=== PATIENT | male | born 1965 | race Caucasian/White ===

== ENCOUNTER → 2021-09-17 13:56 | Outpatient (BNVA) | payer MEDICAID, SELFPAY | PROVIDERS: Visit Provider Internal Medicine Cardiovascular Disease | DX: J44.9 Chronic obstructive pulmonary disease, unspecified (principal); I10 Essential (primary) hypertension; I45.2 Bifascicular block; G47.33 Obstructive sleep apnea (adult) (pediatric); R06.02 Shortness of breath; Z87.891 Personal history of nicotine dependence | CPT/HCPCS: 71046; 80053; 85025; 99204 ==

== ENCOUNTER 2021-10-07 11:14 | Outpatient (CLI) | payer MEDICAID, SELFPAY ==
[2021-10-07 11:58] LABS: Ferritin 5 ng/mL (30-400); Iron 56 ug/dL (59-158); Percent Saturation 14.5 % (20-50); Total Iron Binding Capacity 384 mcg/dl; Unsaturated Iron Binding 328 ug/dL (112-347)
[2021-10-07 12:13] LABS: Vitamin B12 994 pg/mL (232-1245)
[2021-10-07 14:15] LABS: Folate Level > 20.0 ng/mL (4.5-32.2)
== END 2021-10-07 11:15 | disposition home or self-care (01) ==
PROVIDERS: Internal Medicine Critical Care Medicine; Visit Provider Internal Medicine Cardiovascular Disease
DX: D64.9 Anemia, unspecified (principal)
CPT/HCPCS: 82607; 82728; 82746; 83540; 83550

== ENCOUNTER 2021-10-18 14:04 | Outpatient (CLI) | payer MEDICAID, SELFPAY ==
--- NOTE | 2021-10-18 14:32 | CT_ITS ---
WS: [id number] LDCT LUNG CANCER SCREENING TECHNIQUE: Noncontrast CT of the chest with coronal and sagittal reformatted images. CLINICAL INFORMATION: Lung cancer screen COMPARISON: None. DLP: 93.27 mGy.cm DIvol: Mean CTDIvol: 1.60 (mGy) All CT scans at [facility] use at least one of these dose optimization techniques: automat ed exposure control; mA and/or kV adjustment per patient size (includes targeted exams where dose is matched to clinical indication); or iterative reconstruction. FINDINGS: Moderate chronic emphysematous changes. No acute pulmonary infiltrates. Normal caliber thoracic aorta . No mediastinal or hilar lymphadenopathy. No axillary lymphadenopathy. Adrenal glands are normal. Small esophageal hiatal hernia. Low-attenuation LEFT hepatic lesion likely hepatic cyst measuring 14 mm. Hypertrophic changes thoracic spine. 6 mm hazy nodule RIGHT upper lobe . Subsegmental atelectasis RIGHT lower lobe. CT/CT lung screening [id number] IMPRESSION: LUNG-RADS: 2-Benign Appearance or Behavior FOLLOW UP: 12 Month: Continue annual screening with LDCT
== END 2021-10-18 14:05 | disposition home or self-care (01) ==
LOC: RAD 14:05
PROVIDERS: PCP Nurse Practitioner Family; Visit Provider Internal Medicine Critical Care Medicine
DX: Z12.2 Encounter for screening for malignant neoplasm of respiratory organs (principal); F17.200 Nicotine dependence, unspecified, uncomplicated
CPT/HCPCS: 71271

== ENCOUNTER 2021-11-12 13:22 | Outpatient (CLI) | payer MEDICAID, SELFPAY ==
--- NOTE | 2021-11-12 14:02 | PFTS_ITS ---
Date of Study:11/12/21 Date of Dictation: 11/15/2021 MECHANICS: Postbronchodilator forced vital capacity (FVC) is normal. Postbronchodilator forced expiratory volume in one second (FEV1) is moderately reduced. FEV1/FVC is reduced. There is significant postbronchodilator response FLOW VOLUME LOOP: Sloping of expiratory limb suggestive of airway obstruction . LUNG VOLUMES: Not measured. DIFFUSING CAPACITY FOR CARBON MONOXIDE: Moderately reduced . INTERPRETATION: The spirometry consistent with moderate obstruction.? There is significant response to bronchodilators.? Lung volumes not measured. There is moderate gas transfer defect.? Constellation of findings consistent with moderate emphysema.? Correlate clinically. MTDD
== END 2021-11-12 13:23 | disposition home or self-care (01) ==
LOC: RT 13:26
PROVIDERS: PCP Nurse Practitioner Family; Visit Provider Internal Medicine Critical Care Medicine
DX: J44.9 Chronic obstructive pulmonary disease, unspecified (principal)
CPT/HCPCS: 94060; 94729; J7611

== ENCOUNTER 2021-12-18 14:21 | Outpatient (CLI) | payer MEDICAID, SELFPAY ==
[2021-12-18 17:33] LABS: Iron 144 ug/dL (59-158)
== END 2021-12-18 14:22 | disposition home or self-care (01) ==
LOC: LAB 14:23
PROVIDERS: PCP Nurse Practitioner Family; Visit Provider Internal Medicine Critical Care Medicine
DX: D64.9 Anemia, unspecified (principal); I10 Essential (primary) hypertension; I45.2 Bifascicular block; J44.9 Chronic obstructive pulmonary disease, unspecified; G47.33 Obstructive sleep apnea (adult) (pediatric); Z87.891 Personal history of nicotine dependence
CPT/HCPCS: 83540; 99214

== ENCOUNTER → 2021-12-19 13:00 | Outpatient (BNVA) | payer MEDICAID, SELFPAY | PROVIDERS: PCP Nurse Practitioner Family; Visit Provider Internal Medicine Critical Care Medicine | DX: G47.33 Obstructive sleep apnea (adult) (pediatric) (principal); J44.9 Chronic obstructive pulmonary disease, unspecified; Z87.891 Personal history of nicotine dependence; G47.10 Hypersomnia, unspecified; I10 Essential (primary) hypertension; K21.9 Gastro-esophageal reflux disease without esophagitis | CPT/HCPCS: 99214 ==

== ENCOUNTER 2022-05-14 05:55 | Day surgery (SDC) | payer MEDICAID, SELFPAY ==
[2022-05-13 08:09] VITALS: BMI 33.7
--- NOTE | 2022-05-14 06:25 | W.PM.OPSUD ---
Surgery/Procedure H&P Update DATE OF PROCEDURE: May 14, 2022 DATE H&P PERFORMED: 05/12/22 PLANNED PROCEDURE: Operation Date: 05/14/22 07:30 Proposed Procedures p Colonoscopy 94929,R93.89,Z86.010(Not Applicable) - Adán Johnston DO
[2022-05-14 06:26] VITALS: BP 113/79; PULSE 95; RESP 18; TEMP 36.1; O2SAT 96
[2022-05-14] MEDS: sodium chloride 0.9% 1,000 ML 30 ML IV (06:32)
--- NOTE | 2022-05-14 07:00 | ANES.PREANE2 ---
Pre-Anesthetic Assessment Height/Weight: Height 1.91 m Weight 122.47 kg Temp Pulse Resp BP Pulse Ox O2 Del Method 97 F L 95 18 113/79 96 05/14/22 06:26 05/14/22 06:26 05/14/22 06:26 05/14/22 06:26 05/14/22 06:26 05/14/22 06:26 Operation Date: 05/14/22 07:30 Proposed Procedures p Colonoscopy 75826,R93.89,Z86.010(Not Applicable) - Adán Johnston, DO Was Beta Anayeli taken within 24 hours: N/A Was Clonidine taken within 24 hours: N/A Last intake: Intake Last Liquid Date 05/14/22 Last Liquid Time 05:00 Last Solid Date 05/12/22 Last Solid Time 15:00 Social Quit smoking 1 year ago Exam alert, oriented x 3, clear to auscultation bilaterally and regular rate & rhythm Airway Submandibular: within normal limits Cervical ROM: within normal limits Mallampati: Class II Dentition: false History/ROS No significant history except as noted and No significant complaints Pulmonary Asthma, Chronic Obstructive Pulmonary Disease and Shortness of Breath CV/HEM Hypertension None reported Hepatic None reported GI Gastroesophageal Reflux Disease Metabolic Morbid Obesity Neuropsych Depression Anesthetic Plan ASA status: 3 Anesthesia: Anesthesia Evaluation and MAC Risk of > 500 ml blood loss (7ml/kg in children): No Medications/Allergies Home Medications Medication Instructions Recorded Confirmed Last Taken Type albuterol sulfate 2.5 mg/3 mL 2.5 mg inhalation Q4H PRN 09/17/21 05/13/22 05/12/22 History (0.083 %) solution for nebulization Shortness Of Breath amlodipine 5 mg tablet 5 mg PO DAILY 09/17/21 05/13/22 05/12/22 History hydroxyzine HCl 25 mg tablet 25 mg PO TID PRN Insomnia 09/17/21 05/13/22 05/12/22 History lansoprazole 15 mg capsule,delayed 15 mg PO DAILY 09/17/21 05/13/22 05/12/22 History release montelukast 10 mg tablet 10 mg PO DAILY 09/17/21 05/13/22 05/12/22 History multivitamin 1 tab PO DAILY 09/17/21 05/13/22 05/12/22 History vitamin B complex (B 1 tab PO DAILY 09/17/21 05/13/22 05/12/22 History Complex-Vitamin B12 tablet) zinc 50 mg tablet 50 mg PO DAILY 09/17/21 05/13/22 05/12/22 History tadalafil 20 mg tablet 20 mg PO DAILY PRN sexual activity 10/29/21 05/13/22 05/12/22 Rx #20 tabs pentoxifylline 400 mg 400 mg PO TID PRN unknown 12/18/21 05/13/22 05/12/22 History tablet,extended release trazodone 50 mg tablet 50 mg PO DAILY PRN sleep 12/18/21 05/13/22 05/12/22 History budesonide 0.5 mg/2 mL suspension 0.5 mg (2 mL) inhalation BID 30 12/19/21 05/13/22 05/12/22 Rx for nebulization (Pulmicort) days #120 mL revefenacin 175 mcg/3 mL solution 175 mcg (3 mL) inhalation DAILY 30 12/19/21 05/13/22 05/12/22 Rx for nebulization days #90 mL albuterol sulfate 90 mcg/actuation 2 puff inhalation Q6H PRN 03/21/22 05/13/22 05/12/22 Rx aerosol inhaler (ProAir HFA) shortness of breath or wheezing #8.5 grams prednisone 10 mg tablet 10 mg PO .COMPLEX 12 days #24 tabs 03/21/22 05/13/22 05/12/22 Rx salmeterol 50 mcg/dose blister 1 inh inhalation Q12H 30 days #60 03/21/22 05/13/22 05/12/22 Rx powder for inhalation (Serevent ea Diskus) naproxen 500 mg tablet 500 mg PO BID #60 tabs 05/12/22 05/13/22 05/12/22 Rx Allergies Allergy/AdvReac Type Severity Reaction Status Date / Time amoxicillin AdvReac Mild ADR-Diarrhe Verified 05/13/22 08:08 a Current Medications Generic Name Dose Route Start Last Admin Trade Name Freq PRN Reason Stop Dose Admin Sodium Chloride 1,000 mls @ 30 mls/hr 05/14/22 06:00 05/14/22 06:32 Sodium Chloride 0.9% IV 05/15/22 05:59 30 mls/hr .Q24H MARIO Administration PFSH Anesthesia Medical History (Updated 05/12/22 @ 13:34 by Adán Johnston DO) Bifascicular block Chronic obstructive pulmonary disease Chronic sciatica Diverticulitis Erectile dysfunction GERD (gastroesophageal reflux disease) History of colon polyps HTN (hypertension) Insomnia JOSE (obstructive sleep apnea) Peyronie's disease Recurrent major depressive disorder Surgical History History of arthroscopic knee surgery Hx of colonoscopy with polypectomy S/P appendectomy S/P coronary angiogram S/P shoulder surgery S/P trigger finger release S/P wrist surgery Family History Mother Hx of CABG Father No problems noted. Social History Smoking and tobacco status: former smoker Quit status (tobacco): has quit using tobacco Former quit date comment: Smoked on and off for 35 years. No set amount. Alcohol intake: never Marital status: Current occupational status: unemployed History of recent travel: No Data Anesthesia Cardiac Studies: No Data to Display
[2022-05-14 08:44] VITALS: BP 104/88; PULSE 71; RESP 20; TEMP 36.8; O2SAT 95
[2022-05-14 08:54] VITALS: BP 124/106; PULSE 73; RESP 18; O2SAT 99
[2022-05-14] MEDS: ondansetron 2 mg/ML SDV 2 mL 4 MG IVP (09:06)
--- NOTE | 2022-05-14 12:45 | ANE.PACU2 ---
Inpatient post-anesthesia follow up: Airway intact: Yes Vital signs: Temperature 98.3 F Pulse Rate 73 Respiratory Rate 18 Blood Pressure 124/106 Pulse Oximetry 99 Oxygen Delivery Me thod Nasal Cannula Oxygen Flow Rate 3.5 Fraction of Inspir ed Oxygen Hydration adequate: Yes Nausea and vomiting: No Pain level: 1 Mental status: Baseline
== END 2022-05-14 09:45 | disposition home or self-care (01) ==
PROVIDERS: PCP Nurse Practitioner Family; Visit Provider Surgery
PROC: 0DJD8ZZ Inspection of Lower Intestinal Tract, Via Natural or Artificial Opening Endoscopic (ICD-10-PCS; CPT 45378; principal; 2022-05-14 07:30)
DX: R93.89 Abnormal findings on diagnostic imaging of other specified body structures (principal); Z86.010 Personal history of colon polyps; D12.4 Benign neoplasm of descending colon; D12.5 Benign neoplasm of sigmoid colon; D12.3 Benign neoplasm of transverse colon; K57.30 Diverticulosis of large intestine without perforation or abscess without bleeding; Z87.891 Personal history of nicotine dependence; J44.9 Chronic obstructive pulmonary disease, unspecified; I10 Essential (primary) hypertension; K21.9 Gastro-esophageal reflux disease without esophagitis; E66.01 Morbid (severe) obesity due to excess calories; Z68.33 Body mass index [BMI] 33.0-33.9, adult; F32.A Depression, unspecified; G47.33 Obstructive sleep apnea (adult) (pediatric)
CPT/HCPCS: 45380; 45381; 45385; 88305; J2405; J2704; J7030

== ENCOUNTER 2022-07-02 06:44 | Day surgery (SDC) | payer MEDICAID, SELFPAY ==
[2022-06-30 14:44] VITALS: BMI 34.7
[2022-07-02 06:59] VITALS: BP 111/94; PULSE 117; RESP 18; TEMP 36.2; O2SAT 97
[2022-07-02] MEDS: sodium chloride 0.9% 1,000 ML 30 ML IV (07:08)
--- NOTE | 2022-07-02 08:08 | ANES.PREANE2 ---
Pre-Anesthetic Assessment Height/Weight: Height 1.88 m Weight 122.47 kg Temp Pulse Resp BP Pulse Ox O2 Del Method 97.2 F L 117 H 18 111/94 97 07/02/22 06:59 07/02/22 06:59 07/02/22 06:59 07/02/22 06:59 07/02/22 06:59 07/02/22 06:59 Preop Diagnosis: abnormal finding on imaging Operation Date: 07/02/22 08:30 Proposed Procedures p Colonoscopy 49059,Z86.010(Not Applicable) - Adán Johnston DO Familial anesthetic complications: none Was Beta Anayeli taken within 24 hours: N/A Was Clonidine taken within 24 hours: N/A Last intake: Intake Last Liquid Date 07/01/22 Last Liquid Time 02:20 Last Solid Date 06/30/22 Last Solid Time 18:00 Social No alcohol and No tobacco Airway Submandibular: within normal limits Cervical ROM: within normal limits Mallampati: Class II Dentition: false Pulmonary Asthma, Chronic Obstructive Pulmonary Disease and Sleep Apnea (CPAP) CV/HEM Arrythmia (mention of bradycardia denies symtoms) and Hypertension None reported Hepatic None reported GI Gastroesophageal Reflux Disease Metabolic Morbid Obesity [facility] None reported Neuropsych Depression Anesthetic Plan ASA status: 3 Anesthesia: MAC Medications/Allergies Home Medications Medication Instructions Recorded Confirmed Last Taken Type albuterol sulfate 2.5 mg/3 mL 2.5 mg inhalation Q4H PRN 09/17/21 07/02/22 06/25/22 History (0.083 %) solution for nebulization Shortness Of Breath amlodipine 5 mg tablet 5 mg PO DAILY 09/17/21 07/02/22 07/02/22 History hydroxyzine HCl 25 mg tablet 25 mg PO TID PRN Insomnia 09/17/21 07/02/22 06/30/22 History lansoprazole 15 mg capsule,delayed 15 mg PO DAILY 09/17/21 07/02/22 06/30/22 History release montelukast 10 mg tablet 10 mg PO DAILY 09/17/21 07/02/22 06/30/22 History multivitamin 1 tab PO DAILY 09/17/21 07/02/22 06/30/22 History zinc 50 mg tablet 50 mg PO DAILY 09/17/21 07/02/22 06/30/22 History tadalafil 20 mg tablet 20 mg PO DAILY PRN sexual activity 10/29/21 07/02/22 06/25/22 Rx #20 tabs pentoxifylline 400 mg 400 mg PO TID PRN unknown 12/18/21 07/02/22 06/30/22 History tablet,extended release trazodone 50 mg tablet 50 mg PO DAILY PRN sleep 12/18/21 07/02/22 06/25/22 History budesonide 0.5 mg/2 mL suspension 0.5 mg (2 mL) inhalation BID 30 12/19/21 07/02/22 06/25/22 Rx for nebulization (Pulmicort) days #120 mL revefenacin 175 mcg/3 mL solution 175 mcg (3 mL) inhalation DAILY 30 12/19/21 07/02/22 06/25/22 Rx for nebulization days #90 mL albuterol sulfate 90 mcg/actuation 2 puff inhalation Q6H PRN 03/21/22 07/02/22 07/02/22 Rx aerosol inhaler (ProAir HFA) shortness of breath or wheezing #8.5 grams salmeterol 50 mcg/dose blister 1 inh inhalation Q12H 30 days #60 03/21/22 07/02/22 06/25/22 Rx powder for inhalation (Serevent ea Diskus) naproxen 500 mg tablet 500 mg PO BID #60 tabs 05/12/22 07/02/22 06/30/22 Rx Allergies Allergy/AdvReac Type Severity Reaction Status Date / Time amoxicillin AdvReac Mild ADR-Diarrhe Verified 07/02/22 06:57 a Current Medications Generic Name Dose Route Start Last Admin Trade Name Freq PRN Reason Stop Dose Admin Sodium Chloride 1,000 mls @ 30 mls/hr 07/02/22 07:00 07/02/22 07:08 Sodium Chloride 0.9% IV 07/03/22 06:59 30 mls/hr .Q24H MARIO Administration PFSH Anesthesia Medical History (Updated 06/03/22 @ 17:17 by Adán Johnston DO) Bifascicular block Chronic obstructive pulmonary disease Chronic sciatica Diverticulitis Erectile dysfunction GERD (gastroesophageal reflux disease) History of colon polyps HTN (hypertension) Insomnia JOSE (obstructive sleep apnea) Peyronie's disease Recurrent major depressive disorder Tubulovillous adenoma Surgical History History of arthroscopic knee surgery Hx of colonoscopy with polypectomy S/P appendectomy S/P coronary angiogram S/P shoulder surgery S/P trigger finger release S/P wrist surgery Family History Mother Hx of CABG Father No problems noted. Social History Smoking and tobacco status: former smoker Quit status (tobacco): has quit using tobacco Former quit date comment: Smoked on and off for 35 years. No set amount. Alcohol intake: never Marital status: Current occupational status: unemployed History of recent travel: No Data Anesthesia Cardiac Studies: No Data to Display
--- NOTE | 2022-07-02 08:32 | W.PM.OPSUD ---
Surgery/Procedure H&P Update DATE OF PROCEDURE: July 02, 2022 DATE H&P PERFORMED: 06/03/22 PREOP DIAGNOSIS: abnormal finding on imaging PLANNED PROCEDURE: Operation Date: 07/02/22 08:30 Proposed Procedures p Colonoscopy 49031,Z86.010(Not Applicable) - Adán Johnston DO
[2022-07-02 08:57] VITALS: BP 102/68; PULSE 87; RESP 16; TEMP 36.1; O2SAT 93
[2022-07-02 09:06] VITALS: BP 94/73; PULSE 85; RESP 18; O2SAT 94
--- NOTE | 2022-07-02 15:18 | ANE.PACU2 ---
Inpatient post-anesthesia follow up: Airway intact: Yes Vital signs: Temperature 97 F Pulse Rate 85 Respiratory Rate 18 Blood Pressure 94/73 Pulse Oximetry 94 Oxygen Delivery Me thod Room Air Oxygen Flow Rate Fraction of Inspir ed Oxygen Hydration adequate: Yes Nausea and vomiting: No Pain level: 2 Mental status: Baseline
== END 2022-07-02 09:25 | disposition home or self-care (01) ==
PROVIDERS: PCP Nurse Practitioner Family; Visit Provider Surgery
PROC: 0DJD8ZZ Inspection of Lower Intestinal Tract, Via Natural or Artificial Opening Endoscopic (ICD-10-PCS; CPT 45378; principal; 2022-07-02 08:30)
DX: Z86.010 Personal history of colon polyps (principal); K57.30 Diverticulosis of large intestine without perforation or abscess without bleeding; D17.79 Benign lipomatous neoplasm of other sites; K63.5 Polyp of colon; J44.9 Chronic obstructive pulmonary disease, unspecified; G47.30 Sleep apnea, unspecified; I10 Essential (primary) hypertension; K21.9 Gastro-esophageal reflux disease without esophagitis; E66.01 Morbid (severe) obesity due to excess calories; Z68.34 Body mass index [BMI] 34.0-34.9, adult; G47.33 Obstructive sleep apnea (adult) (pediatric); Z87.891 Personal history of nicotine dependence
CPT/HCPCS: 45385; J2704; J7030

== ENCOUNTER → 2022-10-10 09:22 | Outpatient (BNVA) | payer MEDICAID, SELFPAY | PROVIDERS: PCP Nurse Practitioner Family; Visit Provider Internal Medicine Pulmonary Disease | DX: J22 Unspecified acute lower respiratory infection (principal); R06.02 Shortness of breath; G47.33 Obstructive sleep apnea (adult) (pediatric); F17.200 Nicotine dependence, unspecified, uncomplicated; J44.9 Chronic obstructive pulmonary disease, unspecified | CPT/HCPCS: 71046 ==

== ENCOUNTER → 2022-12-23 15:47 | Outpatient (BNVA) | payer MEDICAID, SELFPAY | PROVIDERS: PCP Nurse Practitioner Family; Visit Provider Internal Medicine Cardiovascular Disease | DX: R06.02 Shortness of breath (principal); I45.10 Unspecified right bundle-branch block; J44.9 Chronic obstructive pulmonary disease, unspecified; F17.200 Nicotine dependence, unspecified, uncomplicated; G47.33 Obstructive sleep apnea (adult) (pediatric); I10 Essential (primary) hypertension; I45.2 Bifascicular block | CPT/HCPCS: 93005 ==

== ENCOUNTER 2024-05-23 19:54 | Emergency (ER) | payer MEDICARE, SELFPAY ==
[2024-05-23 20:05] VITALS: BP 100/64; PULSE 117; RESP 20; O2SAT 95; BMI 34.3
--- NOTE | 2024-05-23 20:22 | XRR_ITS ---
PROCEDURE INFORMATION: Exam: XR Chest Exam date and time: 05/23/2024 8:30 PM Age: 59 years old Clinical indication: Shortness of breath; Additional info: SOB TECHNIQUE: Imaging protocol: Radiologic exam of the chest. Views: 1 view. COMPARISON: CR XR chest 2V* [id number] 10/10/2022 9:29 AM FINDINGS: Lungs: Unremarkable. No consolidation. Pleural spaces: Unremarkable. No pleural effusion. No pneumothorax. Heart/Mediastinum: Unremarkable. No cardiomegaly. Bones/joints: Old healed right clavicle fracture. XR/XR chest 1V portable [id number] IMPRESSION: No acute findings.
--- NOTE | 2024-05-23 20:22 | ECG_ITS ---
[facility] Pat Name: Axel Giron Department: Room: Gender: Male [employer]fit[employer] Supervisor: : 1965 Requested By: Favio Appiah Order Number: [id number] Beatriz MD: Callum Power M.D. Measurements Intervals [place] Rate: 100 P: 58 IN: 130 QRS: 266 QRSD: 137 T: 64 QT: 347 QTc: 449 Interpretive Statements SINUS TACHYCARDIA RIGHT AXIS DEVIATION [QRS AXIS > 100] RIGHT BUNDLE BRANCH BLOCK [120+ ms QRS DURATION, UPRIGHT V1, 40+ ms S IN I/aVL/V4/V5/V6] Compared to ECG 12/23/2022 16:04:26 Right-axis deviation now present Sinus rhythm no longer present Ventricular premature complex(es) no longer present Left anterior fascicular block no longer present Electronically Signed On 05-28-2024 15:57:34 TALENT ACQUISITION ADMINISTRATOR by Callum Power M.D. [email or web address]
--- NOTE | 2024-05-23 20:27 | ED_ITS ---
HPI - URI/Sore Throat 2 General: Chief Complaint: Upper Respiratory Infection Stated Complaint: sore throat headache SOB Time Seen by Provider: 05/23/24 20:22 Source: patient Mode of arrival: ambulatory Limitations: no limitations History of Present Illness: 59-year-old male with a history of COPD states over the last 2 days he has been having sore throat cough congestion low-grade fever along with a mild headache. States he has had some sick contacts at home. Said some dyspnea as well he denies any vomiting or diarrhea he denies any chest pain. He is able speak in full senses here. Associated symptoms: Reports fever(s) and headache(s); Deny abdominal pain, chills, chest pain, diarrhea, nausea or vomiting Related Data Home Medications Medication Instructions Recorded Confirmed amlodipine 5 mg tablet 5 mg PO DAILY 09/17/21 12/18/23 hydroxyzine HCl 25 mg tablet 25 mg PO TID PRN Insomnia 09/17/21 12/18/23 lansoprazole 15 mg capsule,delayed 15 mg PO DAILY 09/17/21 12/18/23 release montelukast 10 mg tablet 10 mg PO DAILY 09/17/21 12/18/23 multivitamin 1 tab PO DAILY 09/17/21 12/18/23 zinc 50 mg tablet 50 mg PO DAILY 09/17/21 12/18/23 trazodone 50 mg tablet 50 mg PO DAILY PRN sleep 12/18/21 12/18/23 Previous Rx's Medication Instructions Recorded tadalafil 20 mg tablet 20 mg PO DAILY PRN sexual activity 10/29/21 #20 tabs albuterol sulfate 2.5 mg/3 mL 2.5 mg (3 mL) inhalation Q4H PRN 10/13/22 (0.083 %) solution for nebulization Shortness Of Breath #180 mL pentoxifylline 400 mg See Rx Instructions .Route 10/17/22 tablet,extended release .COMPLEX #270 tabs albuterol sulfate 90 mcg/actuation 2 puff inhalation Q6H PRN 11/20/23 aerosol inhaler (ProAir HFA) shortness of breath or wheezing #8.5 grams azithromycin 250 mg tablet 250 mg PO .every other day #36 tabs 11/20/23 ipratropium 0.5 mg-albuterol 3 mg 3 ml inhalation QID PRN wheezing 11/20/23 (2.5 mg base)/3 mL nebulization #180 mL soln budesonide 0.5 mg/2 mL suspension 0.5 mg (2 mL) inhalation BID #360 12/18/23 for nebulization (Pulmicort) mL tiotropium bromide 1.25 2 puff inhalation DAILY #12 grams 12/18/23 mcg/actuation mist for inhalation (Spiriva Respimat) formoterol fumarate 20 mcg/2 mL 2 ml inhalation BID #1,080 mL 01/06/24 solution for nebulization (Perforomist) Allergies Allergy/AdvReac Type Severity Reaction Status Date / Time amoxicillin AdvReac Mild ADR-Diarrhe Verified 04/21/23 09:12 a Review of Systems 2 Const: Reports: fever(s) and body aches; Denies: chills or change in appetite ENMT: Reports: throat pain; Denies: dental pain Card: Denies: chest pain Resp: Reports: dyspnea and non-productive cough GI: Denies: abdominal pain, nausea, vomiting or diarrhea : Denies: dysuria Musc: Denies: neck pain or back pain Skin/Breast: Denies: rash Neuro: Reports: headache(s) PFSH ED 2 PFSH: Medical History Tubulovillous adenoma History of colon polyps Erectile dysfunction Bifascicular block Insomnia Peyronie's disease Diverticulitis Chronic obstructive pulmonary disease Chronic sciatica Recurrent major depressive disorder JOSE (obstructive sleep apnea) HTN (hypertension) GERD (gastroesophageal reflux disease) Surgical History History of arthroscopic knee surgery Hx of colonoscopy with polypectomy S/P trigger finger release S/P wrist surgery S/P appendectomy S/P shoulder surgery S/P coronary angiogram Family History Mother Hx of CABG Father No problems noted. Social History Smoking and tobacco/nicotine status: former use of tobacco/nicotine Quit status (tobacco/nicotine): has quit using Year quit tobacco: 09/22/2020 Former quit date comment: Smoked on and off for 35 years. No set amount. Alcohol intake: never Marital status: Current occupational status: unemployed Physical Exam 2 Const: COMMON NORMALS: patient oriented x3 HENMT: COMMON NORMALS: normocephalic and atraumatic HEAD & SCALP: n ormocephalic and atraumatic Eye: COMMON NORMALS: Equal, round and reactive pupils present and EOMs intact bilaterally PUPIL: Yes Equal, round and reactive pupils present Neck/C-Spine: COMMON NORMALS: full ROM and supple Chest: COMMONS NORMALS: normal inspection of the chest and normal palpation of entire chest wall Resp: COMMON NORMALS: normal respiratory effort, No retractions, No use of accessory muscles and clear to auscultation bilaterally AUSCULTATION: clear to auscultation bilaterally Cardio: COMMON NORMALS: regular rate, regular rhythm and No murmurs present (Cardio) RATE: regular rate RHYTHM: regular rhythm GI: COMMON NORMALS: Normal to inspection, nondistended, normoactive bowel sounds present, Soft to palpation, non-tender and no masses PALPATION: Yes Soft to palpation Extremity: COMMON NORMALS: normal to inspection and full ROM Neuro: COMMON NORMALS: patient oriented x3, moves all extremities and no focal motor deficits Psych: COMMON NORMALS: mental status grossly normal, Normal thought process present and cooperative THOUGHT PROCESS: Normal thought process present Skin: COMMON NORMALS: no rashes or lesions noted and no wounds GENERAL SKIN EXAM: no rashes or lesions noted Course 2 Vital Signs: Vital signs: Vital Signs Pulse Rate 92 05/23/24 22:06 Respiratory Rate 16 05/23/24 22:06 Blood Pressure 140/83 05/23/24 22:06 Pulse Oximetry 95 05/23/24 22:06 Oxygen Delivery Me thod Room Air 05/23/24 20:59 MDM - URI/Sore Throat Medical Decision Making Patient presents here with likely upper respiratory infection has had cough low- grade fevers body aches he felt much improved here after fluids and steroids no signs of pneumonia COVID is negative he is stable for discharge he is follow-up with PCP and return if worsening he understands agrees to plan. Medical Records I reviewed the patient's medical records. Lab Data I reviewed the patient's lab results. 05/23/24 20:44 05/23/24 20:44 Radiology Impressions Chest X-Ray 05/23/24 20:22 IMPRESSION: No acute findings. Laboratory Results WBC 11.60 10^3/uL (3.29-11.43) H 05/23/24 20:44 RBC 5.21 10^6/uL (3.85-5.65) 05/23/24 20:44 Hgb 13.90 g/dL (11.27-16.99) 05/23/24 20:44 Hct 43.4 % (37-53) 05/23/24 20:44 MCV 83.3 fl (82-101) 05/23/24 20:44 MCH 26.7 pg (27-33) L 05/23/24 20:44 MCHC 32.0 g/dL (30-55) 05/23/24 20:44 RDW 14.2 % (12.1-15.1) 05/23/24 20:44 Plt Count 230 10^3/cmm (157-399) 05/23/24 20:44 MPV 10.0 fL (7.4-10.4) 05/23/24 20:44 Neut % (Auto) 72.6 % 05/23/24 20:44 Lymph % (Auto) 18.3 % 05/23/24 20:44 Rush % (Auto) 5.4 % 05/23/24 20:44 Eos % (Auto) 2.9 % 05/23/24 20:44 Baso % (Auto) 0.6 % 05/23/24 20:44 Neut # (Auto) 8.42 10^3/uL (1.8-7.7) H 05/23/24 20:44 Lymph # (Auto) 2.1 10^3/uL (0.8-4.8) 05/23/24 20:44 Rush # (Auto) 0.6 10^3/uL (0.2-0.9) 05/23/24 20:44 Eos # (Auto) 0.3 10^3/uL (0.0-0.8) 05/23/24 20:44 Baso # (Auto) 0.1 10^3/uL (0.0-0.1) 05/23/24 20:44 Nucleated RBC % (auto) 0 % 05/23/24 20:44 Nucleated RBCs # 0.0 /100WBC 05/23/24 20:44 Sodium 139 mmol/L (136-145) 05/23/24 20:44 Potassium 3.7 mmol/L (3.5-5.1) 05/23/24 20:44 Chloride 103 mmol/L (98-107) 05/23/24 20:44 Carbon Dioxide 24 mmol/L (22-29) 05/23/24 20:44 Anion Gap 15.7 (5-19) 05/23/24 20:44 BUN 8 mg/dL (8-23) 05/23/24 20:44 Creatinine 1.1 mg/dL (0.7-1.2) 05/23/24 20:44 GFR Calculation 68.3 mL/min (90-130) L 05/23/24 20:44 Glucose 173 mg/dL (65-115) H 05/23/24 20:44 Calculated Osmolality 290 mOsm/kg (285-295) 05/23/24 20:44 Calcium 8.4 mg/dL (8.5-10.5) L 05/23/24 20:44 Total Bilirubin 0.2 mg/dL (0.15-1.2) 05/23/24 20:44 AST 21 U/L (0-40) 05/23/24 20:44 ALT 15 U/L (0-41) 05/23/24 20:44 Alkaline Phosphatase 67 U/L (40-130) 05/23/24 20:44 NT-Pro-B Natriuret Pep < 36 pg/mL (0-125) 05/23/24 20:44 Total Protein 7.4 g/dL (6.6-8.7) 05/23/24 20:44 Albumin 4.1 g/dL (3.5-5.2) 05/23/24 20:44 Globulin 3.3 g/dL (1.3-4.6) 05/23/24 20:44 Coronavirus (PCR) Negative (Negative) 05/23/24 20:49 Influenza A (PCR) Negative (Negative) 05/23/24 20:49 Influenza Type B (PCR) Negative (Negative) 05/23/24 20:49 RSV (PCR) Negative (Negative) 05/23/24 20:49 All radiology interpretation(s) finalized by discharge EKG Data EKG 1: I personally reviewed and interpreted this EKG as follows: EKG interpretation date: 05/23/24 EKG interpretation time: 20:27 Interpretation: sinus tach hr [address] elevation qrs 137 qtc 404 Discharge Plan Discharge Patient Disposition: Home Clinical Impression: Upper respiratory infection Condition: Stable Prescriptions: No Action hydroxyzine HCl 25 mg tablet 25 mg PO TID PRN (Reason: Insomnia) zinc 50 mg tablet 50 mg PO DAILY multivitamin Tablet 1 tab PO DAILY lansoprazole 15 mg capsule,delayed release(DR/EC) 15 mg PO DAILY amlodipine 5 mg tablet 5 mg PO DAILY montelukast 10 mg tablet 10 mg PO DAILY trazodone 50 mg tablet 50 mg PO DAILY PRN (Reason: sleep) tadalafil 20 mg tablet 20 mg PO DAILY PRN (Reason: sexual activity) Qty: 20 12RF Rx Instructions: administer approximately 30min before sexual activity; NO NITROGLYCERIN! Spiriva Respimat 1.25 mcg/actuation mist 2 puff inhalation DAILY Qty: 12 4RF budesonide [Pulmicort] 0.5 mg/2 mL suspension for nebulization 0.5 mg inhalation BID Qty: 360 3RF albuterol sulfate 2.5 mg /3 mL (0.083 %) solution for nebulization 2.5 mg inhalation Q4H PRN (Reason: Shortness Of Breath) Qty: 180 3RF pentoxifylline 400 mg tablet extended release See Rx Instructions .ROUTE .COMPLEX Qty: 270 3RF Dose Instruction: TAKE 1 TABLET BY MOUTH THREE TIMES DAILY. ADMINISTER WITH MEALS. Rx Instructions: TAKE 1 TABLET BY MOUTH THREE TIMES DAILY. ADMINISTER WITH MEALS. albuterol sulfate [ProAir HFA] 90 mcg/actuation HFA aerosol inhaler 2 puff inhalation Q6H PRN (Reason: shortness of breath or wheezing) Qty: 8.5 6RF ipratropium-albuterol 0.5 mg-3 mg(2.5 mg base)/3 mL solution for nebulization 3 ml inhalation QID PRN (Reason: wheezing) Qty: 180 6RF azithromycin 250 mg tablet 250 mg PO .every other day Qty: 36 3RF Rx Instructions: 1 tab on Thursday,,Thursday formoterol fumarate [Perforomist] 20 mcg/2 mL solution for nebulization 2 ml inhalation BID Qty: 1080 3RF Discharge Orders: Discharge ED (Routine); Ordered 05/23/24 Ordered By: Favio Appiah Referrals: Yennifer Cobos FNP [Primary Care Provider] - 4-7 days Discharge Diet: Advance as tolerated Discharge Activity: Resume usual activity Patient Instructions: Upper Respiratory Infection (ED) Coding Level of Care Code ED [employer] Officer for Himanshu Natarajan
[2024-05-23 20:54] LABS: Basophils # 0.1 10^3/uL (0.0-0.1); Basophils % 0.6 %; Eosinophils # 0.3 10^3/uL (0.0-0.8); Eosinophils % 2.9 %; Hematocrit 43.4 % (37-53); Lymphocytes # 2.1 10^3/uL (0.8-4.8); Lymphocytes % 18.3 %; Mean Corpuscular Hemoglobin 26.7 pg (27-33); Mean Corpuscular Volume 83.3 fl (82-101); Monocytes # 0.6 10^3/uL (0.2-0.9); Monocytes % 5.4 %; Neutrophils # 8.42 10^3/uL (1.8-7.7); Neutrophils % 72.6 %; Nucleated Red Blood Cells % 0 %; Platelet Count 230 10^3/cmm (157-399); Red Blood Count 5.21 10^6/uL (3.85-5.65); Red Cell Distribution Width 14.2 % (12.1-15.1)
[2024-05-23] MEDS: sodium chloride 0.9% 500 ML 999 ML IV (20:54)
[2024-05-23] MEDS: ketorolac 30 mg/mL INJ 15 MG IVP (20:55)
[2024-05-23] MEDS: dexamethasone 10 mg/mL INJ IVP (20:55)
[2024-05-23 20:59] VITALS: BP 127/99; PULSE 108; RESP 12; O2SAT 94
[2024-05-23 21:28] LABS: Alanine Aminotransferase 15 U/L (0-41); Albumin Level 4.1 g/dL (3.5-5.2); Anion Gap 15.7 (5-19); Aspartate Amino Transferase 21 U/L (0-40); Blood Urea Nitrogen 8 mg/dL (8-23); Calcium 8.4 mg/dL (8.5-10.5); Carbon Dioxide 24 mmol/L (22-29); Chloride 103 mmol/L (98-107); Creatinine Clr Calc Pharmacy 101.6113; Globulin 3.3 g/dL (1.3-4.6); Glomerular Filtration Rate 68.3 mL/min (90-130); Glucose 173 mg/dL (65-115); NT Pro B Type Natriuretic Pept < 36 pg/mL (0-125); Osmolality Calculated 290 mOsm/kg (285-295); Potassium 3.7 mmol/L (3.5-5.1); Sodium 139 mmol/L (136-145); Total Bilirubin 0.2 mg/dL (0.15-1.2); Total Protein 7.4 g/dL (6.6-8.7)
[2024-05-23 21:31] LABS: Covid PCR NEGATIVE (Negative); Influenza A NEGATIVE (Negative); Influenza B NEGATIVE (Negative); Respiratory Syncytial Virus Ce NEGATIVE (Negative)
[2024-05-23 22:06] VITALS: BP 140/83; PULSE 92; RESP 16; O2SAT 95
[2024-05-23 22:49] LABS: Alkaline Phosphatase 67 U/L (40-130)
== END 2024-05-23 21:54 | disposition home or self-care (01) ==
PROVIDERS: Emergency Provider Emergency Medicine; PCP Nurse Practitioner Family
DX: J06.9 Acute upper respiratory infection, unspecified (principal); Z11.52 Encounter for screening for COVID-19; Z87.891 Personal history of nicotine dependence; I10 Essential (primary) hypertension
CPT/HCPCS: 0241U; 71045; 80053; 83880; 85025; 93005; 96361; 96374; 96375; 99285; J1100; J1885; J7040

== ENCOUNTER → 2025-03-23 16:08 | Outpatient (BNVA) | payer MEDICARE, SELFPAY | PROVIDERS: PCP Nurse Practitioner Family; Visit Provider Internal Medicine | DX: J44.89 Other specified chronic obstructive pulmonary disease (principal); G47.33 Obstructive sleep apnea (adult) (pediatric); Z87.891 Personal history of nicotine dependence; J44.9 Chronic obstructive pulmonary disease, unspecified; R06.00 Dyspnea, unspecified; Z12.2 Encounter for screening for malignant neoplasm of respiratory organs | CPT/HCPCS: 36415; 85025; 86003; 99214 ==

== ENCOUNTER 2025-03-28 09:56 | Emergency (ER) | payer MEDICARE, SELFPAY ==
--- OUTSIDE RECORDS SUMMARY | 2024-10-06 08:30 | XMS_ITS ---
Author Organization [facility] Address [address] [place] [address] Care Team Providers Care Painter Tumbling Barrel Name Role Phone Leticia Loja Primary Care Provider TRAV Medellin Unavailable [phone] OBDULIO MICHAEL Unavailable [phone] REASON FOR VISIT Testicular Pain Encounters Encounter Location Date Provider Diagnosis [facility] [address] [place] [address] 10/06/2024 OBDULIO MICHAEL Plan Of Treatment No Information Progress Notes * Axel GIRON ADOB:[birth year] (60 yo M)Acc No.[id number]:10/06/2024 Progress Notes Patient: Axel GARNER Provider: Saad Michael APRN :1965 A ge:59 Y S ex:Male Date:10/06/2024 Address:[address] [place], [place] [phone] Pcp:Leticia Loja Subjective: * Chief Complaints: * 1 . Testicular Pain. * Medical History: Objective: * Vitals: Assessment: Plan: * Treatment: * Billing Information: * Visit Code: * Procedure Codes: * Electronic signature of FESTUS MICHAEL APRN on 03/28/2025 at 10:53 AM CDT Sign off status: Pending * Provider: Saad Michael APRN Date: 10/06/2024 Generated for Eduardo ross/Marleni/eTransmitting on: 0 03/28/2025 10:53 AM CDT
--- NOTE | 2025-03-28 10:11 | XR_ITS ---
WS: [id number] XR foot LT min 3V* [id number] REASON FOR EXAM: Pain FINDINGS: No fracture identified. No bone erosion or periosteal reaction. Joint spaces of the forefoot, midfoot, and hindfoot are intact and relatively well preserved. No radiopaque soft tissue foreign body. XR/XR foot LT min 3V* [id number] IMPRESSION: No acute abnormality identified.
[2025-03-28 10:24] VITALS: BP 124/91; PULSE 92; RESP 20; TEMP 36.9; O2SAT 96
--- OUTSIDE RECORDS SUMMARY | 2025-03-28 10:53 | XMS_ITS | Patient Health Record ---
Author Organization [facility] Address [address] [place] [address] Care Team Providers Care Cooler Tender Name Role Phone Leticia Loja Primary Care Provider TRAV Medellin Unavailable [phone] OBDULIO MICHAEL Unavailable [phone] Reason For Referral No Information Problems Problem Type SNOMED Code ICD Code Onset Dates Problem Status W/U Status Risk Notes Problem Persistent testicular pain (543083795) Testicular pain, left (N50.812) Active confirmed Encounters Encounter Location Date Provider Diagnosis [facility] [address] [place] [address] 09/23/2024 OBDULIO MICHAEL [facility] [address] [place] [address] 09/23/2024 OBDULIO MICHAEL Plan Of Treatment No Information Insurance Providers Payer Name Payer Address Payer Phone Subscriber Number Group Number Insured Name Patient Relationship to Insured Coverage Start Date Coverage End Date BCBS [place] [address] [place], [place] [id number] Axel Giron Self - patient is the insured
--- OUTSIDE RECORDS SUMMARY | 2025-03-28 10:53 | XMS_ITS | Clinical Summary ---
Author Organization [facility] Address [address] [facility] [address] [place] [address] Phone Care Team Providers Care Machine Crater Name Role Phone Chiquita Pacheco MD Primary Care Provider Allergies Active Allergy Reactions Criticality Noted Date Comments Amoxicillin Diarrhea Low 01/13/2021 Medications lansoprazole (PREVACID) 15 mg Capsule, Delayed Release(E.C.) 15 mg. 0 Active multivit with minerals/lutein (MULTIVITAMIN-NH NERALS-LUTEIN ORAL) Take by mouth. Activ e fluticasone propionate (FLONASE) 50 mcg/spray [place], Suspension nasal inhalerIndicatio ns:Chronic obstructive pulmonary disease with acute exacerbation (CMS/HCC) Administer 2 Sprays in each nostril daily. 16 Gram 2 3 Active azelastine (ASTELIN) 137 mcg/actuation nasal sprayIndications :Allergic rhinitis, unspecified seasonality, unspecified trigger Administer 2 Sprays in each nostril 2 times daily. 30 mL 1 3 Active OTHERIndications :Chronic obstructive pulmonary disease, unspecified COPD type (CMS/HCC),Severe persistent asthma, unspecified whether complicated (CMS/HCC) Hover Round scooter 1 Each 5 Active montelukast (SINGULAIR) 10 mg tabletIndication s:Chronic obstructive pulmonary disease, unspecified COPD type (CMS/HCC) Take 1 tablet by mouth once daily 100 Tablet 3 5 Active shower chair DME EQUIPMENT by See Admin Instructions route continuously. 1 Each 5 Active albuterol (PROVENTIL,SONU LAMONT) 2.5 mg /3 mL (0.083 %) Solution for NebulizationIndi cations:COPD with exacerbation (CMS/HCC) Take 3 mL (2.5 mg) by inhalation every 8 hours as needed for Shortness of Breath or Wheezing. 360 mL 3 5 Active amLODIPine (NORVASC) 5 mg tabletIndication s:Benign hypertension Take 1 Tablet (5 mg) by mouth daily. 100 Tablet 3 5 Active venlafaxine (EFFEXOR XR) 75 mg Extended Release 24 hour capsuleIndicatio ns:Recurrent major depressive disorder, in partial remission Take 1 Capsule (75 mg) by mouth daily. 100 Capsule 3 5 Active Spiriva Respimat 1.25 mcg/actuation Mist Take 2 Puffs by inhalation daily. 5 Active Nebulizer Accessories KitIndications:C OPD with exacerbation (CMS/HCC) Use with nebulizer daily as needed 1 Kit 5 Active diclofenac sodium (VOLTAREN) 75 mg Tablet, Delayed Release (E.C.) Take 1 Tablet (75 mg) by mouth 2 times daily. 30 Tablet 1 5 Active traMADoL (ULTRAM) 50 mg tabletIndication s:Lumbar pain with radiation down both legs Take 1 Tablet (50 mg) by mouth 1 time daily as needed for Pain. 30 Tablet 5 Active tiZANidine (ZANAFLEX) 4 mg TabletIndication s:Muscle spasm of back TAKE 1 TABLET BY MOUTH EVERY 8 HOURS NEEDED FOR SPASM 180 Tablet 1 5 Active budesonide (PULMICORT RESPULE) 0.5 mg/2 mL Suspension for NebulizationIndi cations:COPD with exacerbation (CMS/HCC) INHALE 1 VIAL(2ML) BY MOUTH TWICE DAILY 360 mL 3 5 Active azithromycin (ZITHROMAX) 250 mg tablet TAKE 1 TABLET BY MOUTH ON THURSDAY, THURSDAY AND THURSDAY 42 Tablet 5 Active albuterol sulfate HFA 90 mcg/actuation aerosol inhalerIndicatio ns:COPD with exacerbation (CMS/HCC) INHALE 2 PUFFS BY MOUTH EVERY 6 HOURS NEEDED FOR SHORTNESS OF BREATH FOR WHEEZING 9 Gram 2 5 Active Active Problems Problem Noted Date Diagnosed Date Morbid obesity 08/23/2024 Assessment & Plan (08/23/2024 6:32 PM MARKETING PRODUCER): Body mass index is 35.06 kg/m . BMI between 35-40 with 2 or more comorbid conditions. Comorbid conditions related to his obesity include hypertension, GERD, and pre-diabetes. Discussed role of morbid obesity in current health conditions and future risk morbidity/mortality. Epididymitis 08/07/2022 RBBB 08/15/2021 Left anterior fascicular block 08/15/2021 Peyronie's syndrome 08/15/2021 Chronic obstructive pulmonary disease 04/03/2021 Insomnia 04/03/2021 JOSE (obstructive sleep apnea) 04/03/2021 Chronic right-sided low back pain without sciati ca 04/03/2021 Recurrent major depressive disorder, in partial remission 04/03/2021 Benign hypertension 04/03/2021 Prediabetes 04/03/2021 Gastroesophageal reflux disease without esophagi tis 04/03/2021 Encounters Date Type Department Care Team Description 03/07/2025 Nurse Triage [address] [address] Chiquita Pacheco MD 03/01/2025 External Device Data STL ABSTRACTION Provider, Abstract 02/24/[address] [address] Chiquita Pacheco MD COPD with exacerbation ([facility]) 02/23/2025 Nurse Triage [address] [phone] Chiquita Pacheco MD 02/04/[address] [address] Yennifer Cobos FNP 01/31/[facility] [address] [address] Yennifer Cobos FNP 01/05/2025 [place] [address] [place] [address] [place] [address] [place] [phone] Yennifer Cobos, [place] COPD with exacerbation ([facility]) 12/28/2024 External Device Data STL ABSTRACTION Provider, Abstract from Last 3 Months Immunizations Immunization Administration Dates Next Due (SPIKEVAX) (12 YRS UP PRIMAR Y SERIES) COVID-19 VACCINE - MRNA-1273(PF) 100 MCG/0.5 ML IM SUSP 12/06/2020,11/08/2020 INFLUENZA VACCINE QUADRIVALENT 6 MOS UP PF IM INFLUENZA VACCINE QUADRIVALENT RECOMB 18 YR UP P F IM 03/27/2020,03/30/2019 INFLUENZA VACCINE TRIVALENT SPLIT VIRUS, (6 MOS UP), 0.5ML (PF), IM 08/04/2024 Social History Tobacco Use Types Packs/Day Years Used Date Smoking Tobacco: Former Cigarettes Q uit: 09/11/2019 Smokeless Tobacco: Never Tobacco Cessation:Counseling Given: No Alcohol Use Standard Drinks/Week Comments Not Currently 0 (1 standard drink = 0.6 oz pur e alcohol) Feeling Safe Answer Date Recorded Are you in a relationship wi th someone who hurts you emotionally and/or physically? No 11/23/2022 Sex and Gender Information Value Date Recorded Sex Assigned at Not on file Legal Sex Male 4:44 PM CDT Gender Identity Not on file Sexual Orientation Not on file Last Filed Vital Signs Vital Sign Reading Time Taken Comments Blood Pressure 110/80 09/19/2024 2:18 PM CDT Pulse 106 09/19/2024 2:18 PM CDT Temperature 36.8 C (98.3 F) 09/19/2024 2:18 PM CDT Respiratory Rate 26 09/19/2024 2:18 PM CDT Oxygen Saturation 96% 09/19/2024 2:18 PM CDT Inhaled Oxygen Concentration - - Weight 125.8 kg (277 lb 6.4 oz) 09/19/2024 2:18 PM CDT Height 189.2 cm (6' 2.5 ) 09/19/2024 2:18 PM CDT Body Mass Index 35.14 09/19/2024 2:18 PM CDT Plan of Treatment Upcoming Encounters Date Type Department Care Team (Late st Contact Info) Description 04/18/2025 10:00 AM CDT Telemed [facility] [place] [address] [place] [address] Clare Elliott, ANJEL [address] [place] [address] Health Maintenance Due Date Last Done Comments DTAP/TDAP/TD VACCINES (1 - Tdap) 02/21/1983 FIT-DNA Q 3 years 02/21/2009 FIT/FOBT Q 1 year 02/21/2009 Flex Sig/CT Colonography Q 5 years 02/21/2009 ZOSTER VACCINE (1 of 2) 02/21/2014 RSV VACCINE (60+ or ) (1 - Risk 60-74 years 1-dose series) 2024 Medicare Advantage ([place]) Preventative Visit/Annual Wellness Visit 07/13/2024 INFLUENZA VACCINE (#1) 2025 , 03/23/2023, 07/03/2021, Additional history exists COVID-19 Vaccine ( - 2024-2 6 season) 2025 06/12/2021, 12/06/2020, 11/08/2020 COLORECTAL SCREENING 07/03/2027 07/03/2022, 07/02/2022, 07/02/2022 Colorectal Cancer Screening 07/03/2027 Pre-Diabetes and Diabetes Screening 08/04/2027 08/04/2024, 02/09/2024 Abdominal Aortic Aneurysm (A AA) Screening Completed 11/07/2020, 07/28/2018 Procedures Procedure Name Priority Date/Time Associated Diagnosis Comments HEMOGLOBIN A1C Routine 08/04/2024 3:51 PM MARKETING PRODUCER Prediabetes COLONOSCOPY REPORT Routine 07/03/2022 1: 31 PM MARKETING PRODUCER from Last 3 Months or Most Recently Relevant to Health Maintenance Results * (ABNORMAL) HEMOGLOBIN A1C (08/04/2024 3:51 PM MARKETING PRODUCER) HEMOGLOBIN A1C 6.2(H) <5.7 % of total Hgb [facility] Comment: For someone without known diabetes, a hemoglobin A1c value between 5.7% and 6.4% is consistent with prediabetes and should be confirmed with a follow-up test. For someone with known diabetes, a value <7% indicates that their diabetes is well controlled. A1c targets should be individualized based on duration of diabetes, age, comorbid conditions, and other considerations. This assay result is consistent with an increased risk of diabetes. Currently, no consensus exists regarding use of hemoglobin A1c for diagnosis of diabetes for children. ESTIMATED AVERAGE GLUCOSE (MG/DL) 131 mg/dL [facility] ESTIMATED AVERAGE GLUCOSE (MMOL/L) 7.3 mmol/L [facility] Comment: Test Performed at: [facility] [id number] [place] [address] Hailey Dickson MD Blood 08/04/2024 3:51 PM MARKETING PRODUCER 08/06/2024 3:58 AM MARKETING PRODUCER Yennifer WOOD CHEMISTRY ORDERABLES Final Resul t Performing Organization Address City/[facility] Co de Phone Number [facility] [phone] [email or web address] [address] [place] [address] * COLONOSCOPY REPORT (07/03/2022 1:31 PM MARKETING PRODUCER) us Abstract Provider GI PROCEDURE ORDERABLES Edited Result - Final Performing Organization Address City/[facility] Co de Phone Number [facility] CLIA# [id number] [address] [place] [address] from Last 3 Months or Most Recently Relevant to Health Maintenance Insurance [facility] MEDICARE HMO MEDICAID [place] DISABILITY DETERMINATION Care Teams Machine Crater Relationship Specialty Start Date End Date Chiquita Pacheco MD [address] [address] PCP - General Family Practice 08/18/22
--- OUTSIDE RECORDS SUMMARY | 2025-03-28 10:53 | XMS_ITS | Encounter Summary ---
Author Organization [facility] Address [address] [place] [address] Care Team Providers Care Door Maker Name Role Phone Chiquita Pacheco MD Primary Care Provider Reason for Visit * Reason Comments Question Encounter Details Date Type Department Care Team ([facility] st Contact Info) Description 09/20/2024 Telephone [facility] Medicine [address] [address] Yennifer Cobos FNP [address] [place] [address] Question Social History Tobacco Use Types Packs/Day Years Used Date Smoking Tobacco: Former Cigarettes Q uit: 09/11/2019 Smokeless Tobacco: Never Alcohol Use Standard Drinks/Week Comments Not Currently [...] on file Sexual Orientation Not on file documented as of this encounter Miscellaneous Notes * Telephone Encounter - Tessa Joseph - 09/20/2024 3:42 PM CDT Fernandez lucas scooters they are faxing info to the [facility] * Telephone Encounter - Ashwin Dillon - 09/20/2024 1:22 PM CDT Copied from [facility] #[id number]. Topic: Patient or Caregiver Communication Request >> Sep 20, 2024 1:19 PM Ashwin Luna wrote: Patient or Caregiver requesting that a message be sent to Care Team Caller: Axel Giron Patient/Caregiver Callback Number: [phone] (mobile) Call Notes: Patient states [facility] since spoken [facility] them and they no longer sell mobility scooters. He is requesting that be sent to another location. documented in this encounter Plan of Treatment Upcoming Encounters Date Type Department Care Team (Late st Contact Info) Description 04/18/2025 10:00 AM CDT [facility] [place] [address] [phone] Clare Elliott NP [address] [place] [phone] documented as of this encounter Visit Diagnoses Not on filedocumented in this encounter Care Teams Door Maker Relationship Specialty Start Date End Date Chiquita Pacheco MD [address] [facility] [address] [place] [address] PCP - General Family Practice 08/18/22 documented as of this encounter
== END 2025-03-28 12:08 | disposition left against medical advice (07) ==
PROVIDERS: Emergency Provider Family Medicine; PCP Nurse Practitioner Family
DX: Z53.21 Procedure and treatment not carried out due to patient leaving prior to being seen by health care provider (principal); M79.672 Pain in left foot
CPT/HCPCS: 73630

== ENCOUNTER 2025-03-29 16:08 | Emergency (ER) | payer MEDICARE, SELFPAY ==
--- OUTSIDE RECORDS SUMMARY | 2024-10-06 08:30 | XMS_ITS ---
Author Organization [facility] Address [address] [facility] [place] [address] Care Team Providers Care Athletic Field Custodian Name Role Phone Leticia Loja Primary Care Provider TRAV Medellin Unavailable [phone] OBDULIO MICHAEL Unavailable [phone] REASON FOR VISIT Testicular Pain Encounters Encounter Location Date Provider Diagnosis [facility] [address] [facility] [place] [address] 10/06/2024 OBDULIO MICHAEL Plan Of Treatment No Information Progress Notes * Axel GIRON ADOB:[birth year] (60 yo M)Acc No.[id number]:10/06/2024 Progress Notes Patient: Axel GARNER Provider: Saad Michael APRN :1965 A ge:59 Y S ex:Male Date:10/06/2024 Address:[address] [place], [place] [phone] Pcp:Leticia Loja Subjective: * Chief Complaints: * 1 . Testicular Pain. * Medical History: Objective: * Vitals: Assessment: Plan: * Treatment: * Billing Information: * Visit Code: * Procedure Codes: * Electronic signature of FESTUS MICHAEL APRN on 03/29/2025 at 04:12 PM CDT Sign off status: Pending * Provider: Saad Michael APRN Date: 10/06/2024 Generated for Eduardo ross/Marleni/eTransmitting on: 0 03/29/2025 04:12 PM CDT
[2025-03-29 16:11] VITALS: BP 131/88; PULSE 90; RESP 22; TEMP 36.7; O2SAT 97
--- OUTSIDE RECORDS SUMMARY | 2025-03-29 16:12 | XMS_ITS | Patient Health Record ---
Author Organization [facility] Address [address] [place] [address] Care Team Providers Care Log Rafter Name Role Phone Leticia Loja Primary Care Provider TRAV Medellin Unavailable [phone] OBDULIO MICHAEL Unavailable [phone] Reason For Referral No Information Problems Problem Type SNOMED Code ICD Code Onset Dates Problem Status W/U Status Risk Notes Problem Persistent testicular pain (673333894) Testicular pain, left (N50.812) Active confirmed Encounters Encounter Location Date Provider Diagnosis [facility] [address] [place] [address] 09/23/2024 OBDULIO MICHAEL [facility] [address] [place] [address] 09/23/2024 OBDULIO MICHAEL Plan Of Treatment No Information Insurance Providers Payer Name Payer Address Payer Phone Subscriber Number Group Number Insured Name Patient Relationship to Insured Coverage Start Date Coverage End Date BCBS [place] [address] [place], [place] [id number] [phone] [id number] Axel Giron Self - patient is the insured
--- OUTSIDE RECORDS SUMMARY | 2025-03-29 16:12 | XMS_ITS | Clinical Summary ---
Author Organization [facility] Address [address] [facility] [address] [place] [address] Phone Care Team Providers Care Supervisor Malted Milk Name Role Phone Chiquita Pacheco MD Primary Care Provider Allergies Active Allergy Reactions Criticality Noted Date Comments Amoxicillin Diarrhea Low 01/13/2021 Medications lansoprazole (PREVACID) 15 mg Capsule, Delayed Release(E.C.) 15 mg. 0 Active multivit with minerals/lutein (MULTIVITAMIN-DC NERALS-LUTEIN ORAL) Take by mouth. Activ e fluticasone propionate (FLONASE) 50 mcg/spray [place], Suspension nasal inhalerIndicatio ns:Chronic obstructive pulmonary disease [...] 08/23/2024 Assessment & Plan (08/23/2024 6:32 PM CONVEYOR LINE BAKERY WORKER): Body mass index is 35.06 kg/m . [...] Department Care Team Description 03/07/2025 Nurse Triage [address] [address] Chiquita Pacheco MD 03/01/2025 External Device Data STL ABSTRACTION Provider, Abstract 02/24/[address] [address] Chiquita Pacheco MD COPD with exacerbation ([facility]) 02/23/2025 Nurse T[address] [phone] Chiquita Pacheco MD 02/04/[address] [phone] Yennifer Cobos FNP [facility] [address] [address] Yennifer Cobos FNP 01/05/[address] [place] [phone] [place] [address] [place] [address] [place] [phone] Yennifer Cobos, [place] COPD with exacerbation ([facility]) 12/28/2024 External Device Data STL ABSTRACTION [...] Info) Description 04/18/2025 10:00 AM CDT Telemed [facility] [place] [address] [place] [address] Clare Elliott, ANJEL [address] [place] [address] Health Maintenance Due Date Last Done Comments DTAP/TDAP/TD VACCINES (1 - Tdap) 02/21/1983 FIT-DNA Q 3 years 02/21/2009 FIT/FOBT Q 1 year 02/21/2009 Flex Sig/CT Colonography Q 5 years 02/21/2009 ZOSTER VACCINE (1 of 2) 02/21/2014 RSV VACCINE (60+ or ) (1 - Risk 60-74 years 1-dose series) 2024 Medicare [place] ([place]) Preventative Visit/Annual Wellness Visit 07/13/2024 INFLUENZA VACCINE [...] Comments HEMOGLOBIN A1C Routine 08/04/2024 3:51 PM CONVEYOR LINE BAKERY WORKER Prediabetes COLONOSCOPY REPORT Routine 07/03/2022 1: 31 PM CONVEYOR LINE BAKERY WORKER from Last 3 Months or Most Recently Relevant to Health Maintenance Results * (ABNORMAL) HEMOGLOBIN A1C (08/04/2024 3:51 PM CONVEYOR LINE BAKERY WORKER) HEMOGLOBIN A1C 6.2(H) <5.7 % of total [...] ESTIMATED AVERAGE GLUCOSE (MMOL/L) 7.3 mmol/L [facility] Comment: Test Performed at: [facility] [id number] [place] [address] Hailey Dickson MD Blood 08/04/2024 3:51 PM CONVEYOR LINE BAKERY WORKER 08/06/2024 3:58 AM CONVEYOR LINE BAKERY WORKER Yennifer WOOD CHEMISTRY ORDERABLES Final Resul t Performing Organization Address City/[facility] Co de Phone Number [facility] [phone] [facility] [address] [place] [address] * COLONOSCOPY REPORT (07/03/2022 1:31 PM CONVEYOR LINE BAKERY WORKER) us Abstract Provider GI PROCEDURE ORDERABLES Edited Result - Final Performing Organization Address City/[facility] Co de Phone Number [facility] CLIA# [id number] [address] [place] [address] from Last 3 Months or Most Recently Relevant to Health Maintenance Insurance [facility] MEDICARE HMO MEDICAID [place] DISABILITY DETERMINATION Care Teams Supervisor Malted Milk Relationship Specialty Start Date End Date Chiquita Pacheco MD [address] [address] PCP - General Family Practice 08/18/22
--- OUTSIDE RECORDS SUMMARY | 2025-03-29 16:12 | XMS_ITS | Encounter Summary ---
Author Organization [facility] Address [address] [place] [address] Care Team Providers Care Squilgeer Name Role Phone Chiquita Pacheco MD Primary Care Provider Reason for Visit * Reason Comments Question Encounter Details Date Type Department Care Team ([facility] st Contact Info) Description 09/20/[address] [facility] Medicine [address] [phone] Yennifer Cobos FNP [address] [place] [phone] Question Social History Tobacco Use Types [...] scooters [facility] * Telephone Encounter - Ashwin Dillon - 09/20/2024 1:22 PM CDT Copied from [facility] #[id number]. Topic: Patient or Caregiver Communication Request >> Sep 20, 2024 1:19 PM Ashwin Luna wrote: Patient or Caregiver requesting that a message be sent to Care Team Caller: Axel Giron Patient/Caregiver Callback Number: [phone] (mobile) Call Notes: Patient states that [facility] has since spoken with them and they no longer sell mobility scooters. He is requesting that be sent to another location. documented in this encounter Plan of Treatment Upcoming Encounters Date Type Department Care Team (Late st Contact Info) Description 04/18/2025 10:00 AM CDT Telemed [email or web address] - [place] [address] [phone] Clare Elliott NP [address] [place] [phone] documented as of this encounter Visit Diagnoses Not on filedocumented in this encounter Care Teams Squilgeer Relationship Specialty Start Date End Date Chiquita Pacheco MD [address] [facility] [place] [facility], [facility] [address] [place] [address] PCP - General Family Practice 08/18/22 documented as of this encounter
[2025-03-29] MEDS: HYDROcodone-acetaminophen 7.5-325 mg Tablet 1 TAB PO (16:54)
[2025-03-29 16:55] VITALS: BP 146/84; PULSE 86; O2SAT 99
--- NOTE | 2025-03-29 17:27 | W.ED.EXTPRO ---
HPI - Extremity Problem General: Chief complaint: Extremity Problem,Nontraumatic Stated complaint: left big toe pain Time Seen by Provider: 03/29/25 16:19 Source: patient Mode of arrival: ambulatory Limitations: no limitations History of Present Illness: Patient is a 60-year-old male who presents the emergency department complaining of left big toe pain has been bothering him for months. States it hurts to walk, and any thing that touches against the toe causes quite a bit of pain. Notes some redness surrounding the nail, and that his nail has changed texture and consistency over the past month. Had an x-ray yesterday that was unremarkable, recently had lab work done and states that this was normal. He had x-ray in the ER yesterday but left without being seen. No relief from [id number] pain medications at home. No systemic symptoms were reported such as any nausea, vomiting, fever, or chills. MD Complaint: extremity pain Location: left and toe (Great toe) Radiation: none Exacerbating factors: walking and palpation Associated symptoms: Deny chest pain, fever(s) or rash Related Data Home Medications ?Medication ?Instructions ?Recorded ?Confirmed amlodipine 5 mg tablet 5 mg PO DAILY 09/17/21 03/23/25 lansoprazole 15 mg capsule,delayed 15 mg PO DAILY 09/17/21 03/23/25 release montelukast 10 mg tablet 10 mg PO DAILY 09/17/21 03/23/25 zinc 50 mg tablet 50 mg PO DAILY 09/17/21 03/23/25 Previous Rx's ?Medication ?Instructions ?Recorded albuterol sulfate 2.5 mg/3 mL 2.5 mg (3 mL) inhalation Q4H PRN 10/13/22 (0.083 %) solution for nebulization Shortness Of Breath #180 mL albuterol sulfate 90 mcg/actuation 2 puff inhalation Q6H PRN 11/20/23 aerosol inhaler (ProAir HFA) shortness of breath or wheezing #8.5 grams azithromycin 250 mg tablet 250 mg PO .every other day #36 tabs 11/20/23 tiotropium bromide 1.25 2 puff inhalation DAILY #12 grams 12/18/23 mcg/actuation mist for inhalation (Spiriva Respimat) formoterol fumarate 20 mcg/2 mL 2 ml inhalation BID #1,080 mL 01/06/24 solution for nebulization (Perforomist) budesonide 0.5 mg/2 mL suspension 0.5 mg (2 mL) inhalation BID #60 mL 03/23/25 for nebulization (Pulmicort) hydrocodone 7.5 mg-acetaminophen 1 tab PO Q8H PRN pain #15 tabs 03/29/25 325 mg tablet terbinafine HCl 250 mg tablet 250 mg PO DAILY 6 weeks #42 tabs 03/29/25 Allergies Allergy/AdvReac Type Severity Reaction Status Date / Time amoxicillin AdvReac Mild ADR-Diarrhe Verified 03/29/25 16:15 a Review of Systems General: Reports: 10 or more systems reviewed and unremarkable except in HPI and below Const: Denies: fever(s) or chills Card: Denies: chest pain Resp: Denies: dyspnea GI: Denies: abdominal pain, nausea, vomiting or diarrhea Musc: Reports: extremity pain (Left great toe) and extremity swelling (Left great toe); Denies: joint pain Skin/Breast: Reports: nail changes (Left great toe); Denies: rash, skin pain, skin tenderness or new lesions Neuro: Denies: headache(s) PFSH ED PFSH: Medical History Encounter for screening for lung cancer Asthma-COPD overlap syndrome Dyspnea Tubulovillous adenoma History of colon polyps Erectile dysfunction Bifascicular block Insomnia Peyronie's disease Diverticulitis Chronic obstructive pulmonary disease Chronic sciatica Recurrent major depressive disorder JOSE (obstructive sleep apnea) HTN (hypertension) GERD (gastroesophageal reflux disease) Surgical History History of arthroscopic knee surgery Hx of colonoscopy with polypectomy S/P trigger finger release S/P wrist surgery S/P appendectomy S/P shoulder surgery S/P coronary angiogram Family History Mother Hx of CABG Father No problems noted. Social History Smoking and tobacco/nicotine status: former use of tobacco/nicotine (2 ppd X 30 years Quit in 2019) Quit status (tobacco/nicotine): has quit using Year quit tobacco: 09/22/2020 Former quit date comment: Smoked on and off for 35 years. No set amount. Alcohol intake: never Marital status: Current occupational status: unemployed Physical Exam Const: COMMON NORMALS: no acute distress, average body habitus, patient oriented x3, no limitations, healthy appearing, alert and well nourished OTHER: Nontoxic-appearing HENMT: COMMON NORMALS: normocephalic and atraumatic HEAD & SCALP: normocephalic and atraumatic Neck/C-Spine: COMMON NORMALS: full ROM, no lymphadenopathy, supple and no meningeal signs Resp: COMMON NORMALS: normal respiratory effort, No use of accessory muscles and clear to auscultation bilaterally AUSCULTATION: clear to auscultation bilaterally Cardio: COMMON NORMALS: regular rate and regular rhythm RATE: regular rate RHYTHM: regular rhythm Extremity: COMMON NORMALS: full ROM and capillary refill normal NARRATIVE EXTREMITY EXAM: Mild swelling and erythema noted to left great toe, tender to palpation. Neuro: COMMON NORMALS: patient oriented x3 SENSORIUM/ORIENTATION: Yes alert MENINGEAL SIGNS: Yes no meningeal signs Skin: COMMON NORMALS: no wounds and turgor normal NARRATIVE SKIN EXAM: Changes to patient's left great toenail, tender to palpation and there is some surrounding erythema. This does appear to be fungal. No red streaking into the foot. Not significantly warm to the touch. GENERAL SKIN EXAM: turgor normal Course Vital Signs: Vital signs: Vital Signs Temperature 98.1 F 03/29/25 16:11 Pulse Rate 86 03/29/25 16:55 Respiratory Rate 22 H 03/29/25 16:11 Blood Pressure 146/84 03/29/25 16:55 Pulse Oximetry 99 03/29/25 16:55 Oxygen Delivery Me thod Room Air 03/29/25 16:11 MDM - Extremity (Nontraumatic) Medical Decision Making Patient presenting with concerns of a fungal toenail infection, I do not have concerns that this is cellulitis at this time and he has no systemic symptoms to report. In addition x-ray was ordered yesterday and negative for any osseous involvement. No systemic symptoms or concerns on exam, vitals are stable. I will start him on terbinafine for 6 weeks but refer him to podiatry for follow-ups. Zhanna for pain, he is told to return with any concerning signs of systemic illness. Also had labs yesterday that were reviewed and unremarkable. No radiology studies performed this visit Discharge Plan Discharge Patient Disposition: Home Clinical Impression: Onychomycosis Condition: Stable Prescriptions: New terbinafine HCl 250 mg tablet 250 mg PO DAILY 42 Days Qty: 42 0RF hydrocodone-acetaminophen 7.5-325 mg tablet 1 tab PO Q8H PRN (Reason: pain) Qty: 15 0RF No Action zinc 50 mg tablet 50 mg PO DAILY lansoprazole 15 mg capsule,delayed release(DR/EC) 15 mg PO DAILY amlodipine 5 mg tablet 5 mg PO DAILY montelukast 10 mg tablet 10 mg PO DAILY Spiriva Respimat 1.25 mcg/actuation mist 2 puff inhalation DAILY Qty: 12 4RF budesonide [Pulmicort] 0.5 mg/2 mL suspension for nebulization 0.5 mg inhalation BID Qty: 60 6RF albuterol sulfate 2.5 mg /3 mL (0.083 %) solution for nebulization 2.5 mg inhalation Q4H PRN (Reason: Shortness Of Breath) Qty: 180 3RF albuterol sulfate [ProAir HFA] 90 mcg/actuation HFA aerosol inhaler 2 puff inhalation Q6H PRN (Reason: shortness of breath or wheezing) Qty: 8.5 6RF azithromycin 250 mg tablet 250 mg PO .every other day Qty: 36 3RF Rx Instructions: 1 tab on Thursday,,Thursday formoterol fumarate [Perforomist] 20 mcg/2 mL solution for nebulization 2 ml inhalation BID Qty: 1080 3RF Discharge Orders: Discharge ED (Routine); Ordered 03/29/25 Ordered By: Milton Siddiqui Referrals: Yennifer Cobos FNP [Primary Care Provider, Family Practice] Patient Instructions: Patient Portal & Onur Instructions Activity Restrictions/Additional Instructions: Onychomycosis Discharge Instructions Diagnosis and Treatment Plan - The patient has confirmed onychomycosis of the left hallux, with no evidence of cellulitis at this time. - Initiating oral terbinafine 250 mg once daily for 6 weeks, consistent with evidence-based recommendations for dermatophyte toenail infection. - Referral to podiatry for nail debridement and ongoing management. Medication Instructions - Terbinafine 250 mg PO daily x 6 weeks: - Take with or without food, at the same time each day. - Monitor for adverse effects: gastrointestinal symptoms, headache, rash, taste disturbance, and rarely hepatotoxicity. - Baseline and follow-up liver function tests are recommended, especially in patients with underlying hepatic disease. - Review current medications for potential drug-drug interactions, though terbinafine has a relatively low interaction profile. - Humphreys (hydrocodone/acetaminophen): - For pain control, take one tablet every 4?6 hours as needed, not to exceed 8 tablets per day. - Use the lowest effective dose for the shortest duration. - Monitor for sedation, confusion, and constipation, especially in older adults. - Avoid concurrent use with other sedatives or alcohol. Adjunctive Measures - Keep the affected nail trimmed and clean. - Disinfect shoes and socks regularly to reduce risk of reinfection and relapse, which occurs in up to 25?30% of cases. - Avoid walking barefoot in public areas. - Practice good foot hygiene; treat any associated tinea pedis with topical antifungals if present. Podiatry Referral - Nail debridement by a drier operator helper can improve treatment response and facilitate nail care, especially if the nail is thickened or difficult to trim. Expected Course and Follow-up - Clinical improvement may take several months, as nail regrowth is slow; full resolution may require 6?12 months. - Schedule follow-up for assessment of treatment response and adverse effects. - Repeat mycological testing if clinical response is inadequate or relapse occurs. Cellulitis Return Precautions - Educate regarding signs and symptoms of cellulitis: - Increasing redness, warmth, swelling, pain, or tenderness of the toe or foot. - Fever, chills, or systemic symptoms. - Rapid progression of local findings. - Advise immediate medical attention if these symptoms develop. Additional Considerations - Block Breaker regarding the high recurrence rate and importance of adherence to therapy and preventive measures. - Reinforce the need for ongoing monitoring, especially in patients with comorbidities or polypharmacy. Summary of Evidence - Oral terbinafine is the preferred first-line agent for dermatophyte onychomycosis, with superior efficacy and tolerability compared to other systemic and topical agents. - Podiatric debridement and preventive hygiene measures are evidence-based adjuncts to pharmacologic therapy. - Humphreys is appropriate for short-term pain management, with careful monitoring in older adults. - Prompt recognition and management of cellulitis is essential to prevent complications. Print Language: Thai Coding Level of Care Code ED Graphic Design Manager for Himanshu Natarajan
--- NOTE | 2025-03-30 10:00 | DCPLANNER ---
messaged podiatry for er f/u
== END 2025-03-29 17:00 | disposition home or self-care (01) ==
PROVIDERS: Emergency Provider Physician Assistant; PCP Nurse Practitioner Family
DX: B35.1 Tinea unguium (principal); Z87.891 Personal history of nicotine dependence; I10 Essential (primary) hypertension; J44.9 Chronic obstructive pulmonary disease, unspecified
CPT/HCPCS: 99283; J9999

== ENCOUNTER 2025-04-15 14:53 | Emergency (ER) | payer MEDICARE, SELFPAY ==
--- OUTSIDE RECORDS SUMMARY | 2024-10-06 08:30 | XMS_ITS ---
Author Organization [facility] Address [address] [facility] [place] [address] Care Team Providers Care Lithograph Press Operator Name Role Phone Leticia Loja Primary Care Provider TRAV Medellin Unavailable [phone] OBDULIO MICHAEL Unavailable [phone] REASON FOR VISIT Testicular Pain Encounters Encounter Location Date Provider Diagnosis [facility] [address] [facility] [place] [address] 10/06/2024 OBDULIO MICHAEL Plan Of Treatment No Information Progress Notes * Axel GIRON ADOB:[birth year] (60 yo M)Acc No.[id number]:10/06/2024 Progress Notes Patient: Axel GARNER Provider: Saad Michael APRN :1965 A ge:59 Y S ex:Male Date:10/06/2024 Address:[address] [place], [place] [id number] Pcp:Leticia Loja Subjective: * Chief Complaints: * 1 . Testicular Pain. * Medical History: Objective: * Vitals: Assessment: Plan: * Treatment: * Billing Information: * Visit Code: * Procedure Codes: * Electronic signature of FESTUS MICHAEL APRN on 04/15/2025 at 03:00 PM CDT Sign off status: Pending * Provider: Saad Michael APRN Date: 0 10/06/2024 Generated for Eduardo ross/Marleni/eTevansmitting on: 1 03:00 PM CDT
--- OUTSIDE RECORDS SUMMARY | 2025-04-15 15:00 | XMS_ITS | Clinical Summary ---
Author Organization [facility] Address [address] [place] [address] Phone Care Team Providers Care Sewing Machine Operator Name Role Phone Chiquita Pacheco MD Primary Care Provider [phone] Allergies Active Allergy Reactions Criticality Noted Date Comments Amoxicillin Diarrhea Low 01/13/2021 Medications lansoprazole (PREVACID) 15 mg Capsule, Delayed Release(E.C.) 15 mg. 0 Active multivit with minerals/lutein (MULTIVITAMIN-[place] NERALS-LUTEIN ORAL) Take by mouth. Activ e fluticasone propionate (FLONASE) 50 mcg/spray [place], Suspension nasal inhalerIndicatio ns:Chronic obstructive pulmonary disease [...] 08/23/2024 Assessment & Plan (08/23/2024 6:32 PM ELECTRIC MOTOR REPAIRER): Body mass index is 35.06 kg/m . [...] Encounters Date Type Department Care Team Description 03/28/2025 External Device Data [facility] ABSTRACTION Provider, Abstract 03/07/2025 Nurse Triage [address] [address] Chiquita Pacheco MD 03/01/2025 External Device Data [facility]STRACTION Provider, Abstract 02/24/[address] [place] [address] Chiquita Pacheco MD COPD with exacerbation ([facility]) 02/23/2025 Nurse Triage [address] [phone] Chiquita Pacheco MD 02/04/2025 [facility] [address] [place] [address] Yennifer Cobos FNP 01/31/2025 [facility] [address] [place] [address] Yennifer Cobos FNP from Last 3 Months Immunizations Immunization Administration [...] Info) Description 04/18/2025 10:00 AM CDT Telemed [facility] Tele[facility] - [place] [address] [place] [address] Clare Elliott NP [address] [place] [address] Health Maintenance Due Date Last Done Comments DTAP/TDAP/TD VACCINES (1 - Tdap) 02/21/1983 FIT-DNA Q 3 years 02/21/2009 FIT/FOBT Q 1 year 02/21/2009 Flex Sig/CT Colonography Q 5 years 02/21/2009 ZOSTER VACCINE (1 of 2) 02/21/2014 RSV VACCINE (60+ or ) (1 - Risk 60-74 years 1-dose series) 2024 [place] Preventative Visit/Annual Wellness Visit 07/13/2024 INFLUENZA VACCINE (#1) 2025 , 03/23/2023, 07/03/2021, Additional history exists COVID-19 Vaccine (4 - 2024-2 6 season) 2025 06/12/2021, 12/06/2020, 11/08/2020 COLORECTAL SCREENING 07/03/2027 07/03/2022, 07/02/2022, 07/02/2022 Colorectal Cancer Screening 07/03/2027 Pre-Diabetes and Diabetes Screening 08/04/2027 08/04/2024, 02/09/2024 Abdominal Aortic Aneurysm (A AA) Screening Completed 11/07/2020, 07/28/2018 Procedures Procedure Name Priority Date/Time Associated Diagnosis Comments HEMOGLOBIN A1C Routine 08/04/2024 3:51 PM ELECTRIC MOTOR REPAIRER Prediabetes COLONOSCOPY REPORT Routine 07/03/2022 1: 31 PM ELECTRIC MOTOR REPAIRER from Last 3 Months or Most Recently Relevant to Health Maintenance Results * (ABNORMAL) HEMOGLOBIN A1C (08/04/2024 3:51 PM ELECTRIC MOTOR REPAIRER) HEMOGLOBIN A1C 6.2(H) <5.7 % of total [...] ESTIMATED AVERAGE GLUCOSE (MMOL/L) 7.3 mmol/L [facility] Comment: Test Performed at: [facility] [address] [place] [address] Hailey Dickson MD Blood 08/04/2024 3:51 PM ELECTRIC MOTOR REPAIRER 08/06/2024 3:58 AM ELECTRIC MOTOR REPAIRER Yennifer WOOD CHEMISTRY ORDERABLES Final Resul t Performing Organization Address City/[facility]/ZIP Co de Phone Number [facility] [phone] [facility] [address] [place] [address] * COLONOSCOPY REPORT (07/03/2022 1:31 PM ELECTRIC MOTOR REPAIRER) Abstract Provider GI PROCEDURE ORDERABLES Edited Result - Final [facility] CLIA# [id number] [address] [place] [address] from Last 3 Months or Most Recently Relevant to Health Maintenance Insurance [facility] MEDICARE HMO [place]ICAID [place] * Guarantor: DISABILTIY DETERMINATION Account Type Relation to Patient Date of Phone Billing Address Corporate Other [facility] [place] [address] [id number] DISABILITY DETERMINATION Care Teams Sewing Machine Operator Relationship Specialty Start Date End Date Chiquita Pacheco MD [address] [address] PCP - General Family Practice 08/18/22
--- OUTSIDE RECORDS SUMMARY | 2025-04-15 15:00 | XMS_ITS | Encounter Summary ---
Author Organization [facility] Address [address] [place] [address] Care Team Providers Care Apparel Cutter Name Role Phone Chiquita Pacheco MD Primary Care Provider Reason for Visit * Reason Comments Question Encounter Details Date Type Department Care Team ([facility] st Contact Info) Description 09/20/2024 Telephone [facility] Medicine [address] [address] Yennifer Cobos FNP [address] [place] [phone] Question Social History Tobacco Use Types [...] scooters they are faxing info to the [facility] * Telephone Encounter - Ashwin Dillon - 09/20/2024 1:22 PM CDT Copied from [facility] #[id number]. Topic: Patient or Caregiver Communication Request >> Sep 20, 2024 1:19 PM Ashwin Luna wrote: Patient or Caregiver requesting that a message be sent to Care Team Caller: Axel Giron Patient/Caregiver Callback Number: [phone] (mobile) Call Notes: Patient states [facility] has since spoken with them and they no longer sell mobility scooters. He is requesting that be sent to another location. documented in this encounter Plan of Treatment Upcoming Encounters Date Type Department Care Team (Late st Contact Info) Description 04/18/2025 10:00 AM CDT [facility] [place] [address] [phone] Clare Elliott NP [address] [place] [phone] documented as of this encounter Visit Diagnoses Not on filedocumented in this encounter Care Teams Apparel Cutter Relationship Specialty Start Date End Date Chiquita Pacheco MD [address] [facility] [address] [place] [phone] PCP - General Family Practice 08/18/22 documented as of this encounter
--- OUTSIDE RECORDS SUMMARY | 2025-04-15 15:00 | XMS_ITS | Patient Health Record ---
Author Organization [facility] Address [address] [place] [address] Care Team Providers Care Rubber Boots And Shoes Repairer Name Role Phone Leticia Loja Primary Care Provider TRAV Med[place]in Unavailable [phone] OBDULIO MICHAEL Unavailable [phone] Reason For Referral No Information Problems Problem Type SNOMED Code ICD Code Onset Dates Problem Status W/U Status Risk Notes Problem Persistent testicular pain (182438643) Testicular pain, left (N50.812) Active confirmed Encounters Encounter Location Date Provider Diagnosis [facility] [address] [place] [address] 09/23/2024 OBDULIO MICHAEL [facility] [address] [place] [address] 09/23/2024 OBDULIO MICHAEL Plan Of Treatment No Information Insurance Providers Payer Name Payer Address Payer Phone Subscriber Number Group Number Insured Name Patient Relationship to Insured Coverage Start Date Coverage End Date [employer] [place] [address] [place], [place] [id number] [phone] [id number] Axel Giron Self - patient is the insured
[2025-04-15 15:01] VITALS: BP 163/104; PULSE 122; RESP 19; O2SAT 95
--- NOTE | 2025-04-15 15:03 | XRR_ITS ---
PROCEDURE INFORMATION: Exam: XR Left Foot Exam date and time: 04/15/2025 3:11 PM Age: 60 years old Clinical indication: Pain; Foot; Left; Additional info: Lt great toe redness/swelling TECHNIQUE: Imaging protocol: Radiologic exam of the left foot. Views: 3 or more views. COMPARISON: CR XR foot LT min 3V* [id number] 03/28/2025 10:14 AM FINDINGS: Bones/joints: No evidence of acute fracture or subluxation. Tarsometatarsal alignment is maintained. Achilles enthesophyte. If there is concern for Achilles tendon pathology, follow-up outpatient MRI may be helpful. Soft tissues: Soft tissue edema and possible ulceration of the great toe. No evidence of radiopaque foreign body. XR/XR foot LT min 3V* [id number] IMPRESSION: 1. Soft tissue edema and possible ulceration of the great toe without evidence of acute osseous erosion, fracture or subluxation. If there is clinical concern for infection, consider correlation with MRI.
--- NOTE | 2025-04-15 15:05 | W.ED.GENADLT ---
HPI - General Adult General: Chief complaint: Skin/Abscess/Foreign Body Stated complaint: Lt big toe inj Time Seen by Provider: 04/15/25 14:55 Source: patient Mode of arrival: ambulatory Limitations: no limitations History of Present Illness: 60-year-old male states has been having left great toe pain for roughly 3 weeks he was seen here 2 weeks ago started on antifungal states that he is now had some increased redness to his toe along with pain that sharp in nature he rates his pain as 6 out of 10 he denies any fevers denies any injuries Related Data Home Medications ?Medication ?Instructions ?Recorded ?Confirmed amlodipine 5 mg tablet 5 mg PO QPM 09/17/21 04/15/25 montelukast 10 mg tablet 10 mg PO QPM 09/17/21 04/15/25 albuterol sulfate 90 mcg/actuation 2 puff inhalation Q6H PRN 04/15/25 04/15/25 aerosol inhaler Shortness Of Breath terbinafine HCl 250 mg tablet 250 mg PO QPM 04/15/25 04/15/25 tizanidine 4 mg tablet 4 mg PO Q8H PRN Muscle Spasm 04/15/25 04/15/25 venlafaxine 75 mg capsule,extended 75 mg PO QPM 04/15/25 04/15/25 release 24 hr zinc sulfate 50 mg zinc (220 mg) 50 mg PO QPM 04/15/25 04/15/25 tablet Previous Rx's ?Medication ?Instructions ?Recorded albuterol sulfate 2.5 mg/3 mL 2.5 mg (3 mL) inhalation Q4H PRN 10/13/22 (0.083 %) solution for nebulization Shortness Of Breath #180 mL azithromycin 250 mg tablet 250 mg PO .every other day #36 tabs 11/20/23 tiotropium bromide 1.25 2 puff inhalation DAILY #12 grams 12/18/23 mcg/actuation mist for inhalation (Spiriva Respimat) formoterol fumarate 20 mcg/2 mL 2 ml inhalation BID #1,080 mL 01/06/24 solution for nebulization (Perforomist) budesonide 0.5 mg/2 mL suspension 0.5 mg (2 mL) inhalation BID #60 mL 03/23/25 for nebulization (Pulmicort) hydrocodone 7.5 mg-acetaminophen 1 tab PO Q8H PRN pain #15 tabs 03/29/25 325 mg tablet clindamycin HCl 300 mg capsule 300 mg PO Q8H 7 days #21 caps 04/15/25 (Cleocin HCl) hydrocodone 5 mg-acetaminophen 325 1 tab PO Q6H PRN pain #14 tabs 04/15/25 mg tablet Allergies Allergy/AdvReac Type Severity Reaction Status Date / Time amoxicillin AdvReac Mild ADR-Diarrhe Verified 03/29/25 16:15 a Review of Systems Musc: Reports: extremity pain PFSH ED PFSH: Medical History Encounter for screening for lung cancer Asthma-COPD overlap syndrome Dyspnea Tubulovillous adenoma History of colon polyps Erectile dysfunction Bifascicular block Insomnia Peyronie's disease Diverticulitis Chronic obstructive pulmonary disease Chronic sciatica Recurrent major depressive disorder JOSE (obstructive sleep apnea) HTN (hypertension) GERD (gastroesophageal reflux disease) Surgical History History of arthroscopic knee surgery Hx of colonoscopy with polypectomy S/P trigger finger release S/P wrist surgery S/P appendectomy S/P shoulder surgery S/P coronary angiogram Family History Mother Hx of CABG Father No problems noted. Social History Smoking and tobacco/nicotine status: former use of tobacco/nicotine (2 ppd X 30 years Quit in 2020) Quit status (tobacco/nicotine): has quit using Year quit tobacco: 09/22/2020 Former quit date comment: Smoked on and off for 35 years. No set amount. Alcohol intake: never Marital status: Current occupational status: unemployed Physical Exam Const: COMMON NORMALS: no acute distress, patient oriented x3 and healthy appearing HENMT: COMMON NORMALS: normocephalic and atraumatic HEAD & SCALP: normocephalic and atraumatic Eye: COMMON NORMALS: conjunctivae normal CONJUNCTIVA: Yes conjunctivae normal Neck/C-Spine: COMMON NORMALS: full ROM and supple Chest: COMMONS NORMALS: normal inspection of the chest Resp: COMMON NORMALS: normal respiratory effort Cardio: COMMON NORMALS: regular rate RATE: regular rate Extremity: COMMON NORMALS: full ROM OTHER: Neuro: COMMON NORMALS: patient oriented x3, moves all extremities and no focal motor deficits Psych: COMMON NORMALS: mental status grossly normal, Normal thought process present and cooperative THOUGHT PROCESS: Normal thought process present Skin: COMMON NORMALS: no rashes or lesions noted and no wounds GENERAL SKIN EXAM: no rashes or lesions noted Course Vital Signs: Vital signs: Vital Signs Pulse Rate 118 H 04/15/25 15:55 Respiratory Rate 19 H 04/15/25 15:01 Blood Pressure 160/89 04/15/25 15:55 Pulse Oximetry 99 04/15/25 15:55 Oxygen Delivery Me thod Room Air 04/15/25 15:01 MDM - General Adult Medical Decision Making Patient presents here with erythema to the left great toe consistent with a cellulitis. He has no signs of sepsis his white count CRP here are normal. He has no signs of osteomyelitis on his foot x-ray and foot x-ray was normal. I did check pulses no signs of arterial occlusion. I did show images to Dr. Oleary podiatry will start on clindamycin and he is going to see him in his office on Thursday and likely remove his toenail. Patient's return if worsening he understands agrees to plan Lab Data 04/15/25 15:14 Laboratory Results WBC 8.56 10^3/uL (3.29-11.43) 04/15/25 15:14 RBC 5.48 10^6/uL (3.85-5.65) 04/15/25 15:14 Hgb 14.40 g/dL (11.27-16.99) 04/15/25 15:14 Hct 46.2 % (37-53) 04/15/25 15:14 MCV 84.3 fl (82-101) 04/15/25 15:14 MCH 26.3 pg (27-33) L 04/15/25 15:14 MCHC 31.2 g/dL (30-55) 04/15/25 15:14 RDW 13.8 % (12.1-15.1) 04/15/25 15:14 Plt Count 257 10^3/cmm (157-399) 04/15/25 15:14 MPV 10.2 fL (7.4-10.4) 04/15/25 15:14 Neut % (Auto) 70.2 % 04/15/25 15:14 Lymph % (Auto) 22.2 % 04/15/25 15:14 Stanton % (Auto) 3.2 % 04/15/25 15:14 Eos % (Auto) 3.3 % 04/15/25 15:14 Baso % (Auto) 0.9 % 04/15/25 15:14 Neut # (Auto) 6.01 10^3/uL (1.8-7.7) 04/15/25 15:14 Lymph # (Auto) 1.9 10^3/uL (0.8-4.8) 04/15/25 15:14 Stanton # (Auto) 0.3 10^3/uL (0.2-0.9) 04/15/25 15:14 Eos # (Auto) 0.3 10^3/uL (0.0-0.8) 04/15/25 15:14 Baso # (Auto) 0.1 10^3/uL (0.0-0.1) 04/15/25 15:14 Nucleated RBC % (auto) 0 % 04/15/25 15:14 Nucleated RBCs # 0.0 /100WBC 04/15/25 15:14 ESR 15 mm/hr (0-10) H 04/15/25 15:14 POC Glucose 167 mg/dL (70-110) H 04/15/25 15:06 C-Reactive Protein 6.9 mg/L (0.0-4.9) H 04/15/25 15:14 All radiology interpretation(s) finalized by discharge Discharge Plan Discharge Patient Disposition: Home Clinical Impression: Cellulitis of great toe of left foot Condition: Stable Prescriptions: New hydrocodone-acetaminophen 5-325 mg tablet 1 tab PO Q6H PRN (Reason: pain) Qty: 14 0RF clindamycin HCl [Cleocin HCl] 300 mg capsule 300 mg PO Q8H 7 Days Qty: 21 0RF No Action amlodipine 5 mg tablet 5 mg PO QPM montelukast 10 mg tablet 10 mg PO QPM Spiriva Respimat 1.25 mcg/actuation mist 2 puff inhalation DAILY Qty: 12 4RF budesonide [Pulmicort] 0.5 mg/2 mL suspension for nebulization 0.5 mg inhalation BID Qty: 60 6RF albuterol sulfate 2.5 mg /3 mL (0.083 %) solution for nebulization 2.5 mg inhalation Q4H PRN (Reason: Shortness Of Breath) Qty: 180 3RF azithromycin 250 mg tablet 250 mg PO .every other day Qty: 36 3RF Rx Instructions: 1 tab on Thursday,,Thursday formoterol fumarate [Perforomist] 20 mcg/2 mL solution for nebulization 2 ml inhalation BID Qty: 1080 3RF hydrocodone-acetaminophen 7.5-325 mg tablet 1 tab PO Q8H PRN (Reason: pain) Qty: 15 0RF venlafaxine 75 mg capsule,extended release 24hr 75 mg PO QPM tizanidine 4 mg tablet 4 mg PO Q8H PRN (Reason: Muscle Spasm) zinc sulfate 50 mg zinc (220 mg) Tablet 50 mg PO QPM albuterol sulfate 90 mcg/actuation HFA aerosol inhaler 2 puff INHALATION Q6H PRN (Reason: Shortness Of Breath) terbinafine HCl 250 mg tablet 250 mg PO QPM Discharge Orders: Discharge ED (Routine); Ordered 04/15/25 Ordered By: Favio Appiah Referrals: Yennifer Cobos FNP [Primary Care Provider, Family Practice] Milton Contreras DPM [Physician, Podiatry] - 4-7 days Discharge Diet: Advance as tolerated Discharge Activity: Resume usual activity Patient Instructions: Cellulitis (ED), Opioid Safety Print Language: Bengali Coding Level of Care Code ED Guest Services Director for Himanshu Natarajan
[2025-04-15 15:20] LABS: Hematocrit 46.2 % (37-53); Hemoglobin 14.40 g/dL (11.27-16.99); Mean Corpuscular HGB Conc 31.2 g/dL (30-55); Mean Corpuscular Hemoglobin 26.3 pg (27-33); Mean Corpuscular Volume 84.3 fl (82-101); Nucleated Red Blood Cells % 0 %; Platelet Count 257 10^3/cmm (157-399); Red Blood Count 5.48 10^6/uL (3.85-5.65); White Blood Count 8.56 10^3/uL (3.29-11.43)
[2025-04-15] MEDS: HYDROcodone-acetaminophen 7.5-325 mg Tablet 1 TAB PO (15:33)
[2025-04-15 15:45] VITALS: PULSE 110; O2SAT 94
[2025-04-15 15:55] VITALS: BP 160/89; PULSE 118; O2SAT 99
--- NOTE | 2025-04-15 16:16 | PC.NURSE ---
bilateral posterior tibial pulses obtained via doppler
== END 2025-04-15 15:50 | disposition home or self-care (01) ==
PROVIDERS: Emergency Provider Emergency Medicine; PCP Nurse Practitioner Family
DX: L03.032 Cellulitis of left toe (principal); Z87.891 Personal history of nicotine dependence; I10 Essential (primary) hypertension
CPT/HCPCS: 36416; 73630; 82962; 85025; 85651; 86140; 99284; J9999

== ENCOUNTER → 2025-04-18 13:32 | Outpatient (BNVA) | payer MEDICARE, SELFPAY | PROVIDERS: PCP Nurse Practitioner Family; Visit Provider Podiatrist Foot & Ankle Surgery | DX: L60.0 Ingrowing nail (principal); L03.032 Cellulitis of left toe | CPT/HCPCS: 11730; 99204 ==

== ENCOUNTER → 2025-05-02 14:18 | Outpatient (BNVA) | payer MEDICARE, SELFPAY | PROVIDERS: PCP Nurse Practitioner Family; Visit Provider Podiatrist Foot & Ankle Surgery | DX: Z09 Encounter for follow-up examination after completed treatment for conditions other than malignant neoplasm (principal); L60.0 Ingrowing nail; L03.032 Cellulitis of left toe | CPT/HCPCS: 99213 ==